=== PATIENT | male | born 1975 | race Caucasian/White ===

== ENCOUNTER → 2018-06-18 | Outpatient (CLI) | payer MEDICAID | END | disposition home or self-care (01) | LOC: PREOP 05:49 | PROVIDERS: ATTEND Surgery | DX: Z01.818 Encounter for other preprocedural examination (principal) ==

== ENCOUNTER → 2019-07-21 | Outpatient (CLI) | payer MEDICARE, MEDICAID ==
[~2019-07-21] MED LIST: AMOX-358 PO; HYDR-34 PO; LISI10TA2; ONDN4T PO
--- NOTE | 2019-07-21 14:11 | Diagnostic Imaging Report ---
PROCEDURE: US Renal Bilateral. TECHNIQUE: Multiple real-time grayscale images were obtained over the kidneys in various projections bilaterally. INDICATION: Left renal mass noted on recent CT. COMPARISON: Correlation is made with prior CT from 06/21/2019. FINDINGS: Right kidney measures 11.8 x 4.8 x 5.1 cm and the left kidney measures 12.9 x 5.4 x 4.7 cm. Cortical thickness and echogenicity is within normal limits. There are no calculi or hydronephrosis. The exophytic cyst arising from upper pole left kidney is not well seen by ultrasound. Urinary bladder is unremarkable. Bilateral ureteral jets were visualized. IMPRESSION: Unremarkable renal ultrasound. The small exophytic lesion arising from the upper pole left kidney on CT is not well seen by ultrasound. Continued CT follow-up is recommended to show continued stability. Dictated by: Dictated on workstation # [id number]
== END ==
LOC: RAD 11:49
PROVIDERS: ATTEND Nurse Practitioner Family
DX: N28.9 Disorder of kidney and ureter, unspecified (principal)
CPT/HCPCS: 76770